=== PATIENT | male | born 1990 | race Caucasian/White ===

== ENCOUNTER 2019-10-23 08:52 | Day surgery (SDC) | payer OTHER ==
[~2019-10-23 08:52] MED LIST: Buffered Lidocaine 1% SYRIN* 1 ML/SYRINGE INTRADERM ONE; Lactated Ringers 1000 ML Bag* 1,000 ML IV SCH
[2019-10-23] MEDS ORDERED: ceFAZolin 2 GM in NS PREMIX(*) 2 GM/100 ML BAG IVPB ONE (08:59)
[2019-10-23] MEDS ORDERED: fentaNYL* 50 MCG/ML 2 ML VIAL (100 MCG VIAL) ONE (10:30)
[2019-10-23] MEDS ORDERED: Propofol* 10 MG/ML 20 ML BTL ONE (10:30)
[2019-10-23] MEDS ORDERED: Midazolam* 1 MG/ML 2 ML VIAL (2 MG) ONE (10:30)
[2019-10-23] MEDS ORDERED: Bupivacaine 0.25% SDV* 30 ML ONE (10:33)
[2019-10-23] MEDS ORDERED: Lidocaine 2% PF * 5 ML VIAL ONE (10:38)
[2019-10-23] MEDS ORDERED: Dexamethasone IV* 4 MG/ML 1 ML (4 MG) ONE (10:47)
[2019-10-23] MEDS ORDERED: fentaNYL* 50 MCG/ML 2 ML VIAL (100 MCG VIAL) IV PRN (11:09)
[2019-10-23] MEDS ORDERED: Naloxone* 0.4 MG/ML 1 ML VIAL IV PRN (11:09)
[2019-10-23] MEDS ORDERED: Ondansetron INJ* 2 MG/ML VIAL IV PRN (11:09)
[2019-10-23] MEDS ORDERED: oxyCODONE/Acetamin 5/325 MG* TAB PO PRN (11:09)
[2019-10-23] MEDS ORDERED: HYDROmorphone INJ1* 1 MG/ML SYRINGE IV PRN (11:09)
[2019-10-23] MEDS ORDERED: DiMENhydriNATE IV* 50 MG/ML VIAL IV PUSH PRN (11:09)
[2019-10-23] MEDS ORDERED: Ketorolac INJ* 30 MG/ML 1 ML VIAL ONE (12:01)
[2019-10-23] MEDS ORDERED: Ondansetron INJ* 2 MG/ML VIAL ONE (12:01)
[2019-10-23 13:34] VITALS: BP 127/84
--- NOTE | 2019-10-23 20:47 | OP ---
DATE OF OPERATION: 10/23/19 - [facility] DATE OF : 89 SURGEON: Haile Matthew MD. BAND MACHINE OPERATOR: ANATOLIY Will. An investment sales assistant was needed for the procedure to aid in positioning of the arm and retraction. ANESTHESIOLOGIST: Dr. Payan. ANESTHESIA: General. PRE-OP DIAGNOSES: 1. Right carpal tunnel syndrome. 2. 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 POST-OP DIAGNOSES: 1. Right carpal tunnel syndrome. 2. 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 OPERATIVE PROCEDURE: 1. Right endoscopic carpal tunnel release. 2. Right cubital tunnel release with anterior transmuscular transposition. INDICATIONS: Mr. Pedro has the aforementioned conditions, particularly bad is the ulnar nerve where there is quite a bit of ulnar nerve instability. We had talked about treatment options. He had wanted to proceed with surgery. He understands this risk including risk of persistent pain. ESTIMATED BLOOD LOSS: 2 mL. COMPLICATIONS: None. FINDINGS: See above and elbow. DESCRIPTION OF PROCEDURE: Mr. Pedro was seen in the preoperative holding area. The correct side, site, and procedure were identified. We came back to the operating room. The arm was prepped and draped in the usual fashion. A time -out was performed. The arm was exsanguinated with the Esmarch and the tourniquet was inflated to 225 mmHg. I first made a 1 cm transverse incision just ulnar to the palmaris longus tendon, dissection was carried down. The distal antebrachial fascia was split transversely. Two-pronged was placed, the carpal tunnel was dilated open. A MicroAire endoscopic carpal tunnel system was then introduced into the carpal tunnel. I went ahead in the appropriate location, the blade was elevated and the release was carried out from distal to proximal, this was all confirmed distally. I then released the distal antebrachial fascia. The wound was irrigated out. The skin was closed with 4-0 Prolene and Steri-Strips. I then made a curvilinear incision centered over the cubital tunnel. Dissection was carried out. A prominent medial antebrachial cutaneous nerve was identified and preserved throughout the surgery and entire release of the ulnar nerve was performed releasing the superficial FCU fascia and the subfascial layer Cooley's ligament and then the fascia overlying the nerve, although it passed the arcade of [place]. At this point, I excised the medial intermuscular septum. I excised the leading edge of the FCU fascia and a little bit of the muscular component of the humeral head. I then raised step- cut fascial flaps in the flexor pronator fascia and the tendinous septa were excised. The nerve was then transposed upon to the muscular bed. Hemostasis was obtained. The 2 ends of the step-cut fascial flaps were sewn end-to-end with 4-0 Ethibond suture. This provided a very loose fascial sling to keep the nerve in the transposed position. At this point, everything was looking very good. The nerve was in a very nice position. The wound was then irrigated out. The subcutaneous tissue was reapproximated with 2-0 Vicryl suture. Skin was closed with 3-0 Monocryl and Steri- Strips. A 0.25% plain Marcaine was infiltrated all about the operative area. He was placed in a long-arm splint with lateral buttress. Tourniquet was deflated. He was taken to the recovery room in stable condition. [id number] #: [id number]
== END 2019-10-23 13:25 | disposition home or self-care (01) ==
LOC: OREAST 08:52
PROVIDERS: ATTEND Orthopaedic Surgery Hand Surgery
PROC: 01N54ZZ Release Median Nerve, Percutaneous Endoscopic Approach (ICD-10-PCS; principal; 2019-10-23 10:15)
PROC: 01N40ZZ Release Ulnar Nerve, Open Approach (ICD-10-PCS; 2019-10-23 10:15)
DX: G56.01 Carpal tunnel syndrome, right upper limb (principal); G56.21 Lesion of ulnar nerve, right upper limb; F41.8 Other specified anxiety disorders; K21.9 Gastro-esophageal reflux disease without esophagitis; J45.909 Unspecified asthma, uncomplicated; Z87.891 Personal history of nicotine dependence
CPT/HCPCS: J0690; J1100; J1885; J2250; J2405; J2704; J3010; J3490